=== PATIENT | female | born 1935 | race African-American/Black ===

== ENCOUNTER 2020-01-30 11:33 | Emergency (ER) | payer SELFPAY ==
[~2020-01-30] VITALS: Ht 167.6 cm; Wt 50.0 kg
[2020-01-30] MEDS ORDERED: SODIUM CHLORIDE 0.9% 1,000 ML IV ONE (12:35)
[2020-01-30 13:12] LABS: CLARITY URINE CLOUDY (CLEAR); COLOR URINE YELLOW (YELLOW); KETONES URINE NEGATIVE (NEGATIVE); LEUKOCYTE ESTERASE URINE NEGATIVE (NEGATIVE); NITRITE URINE NEGATIVE (NEGATIVE); OCCULT BLOOD URINE NEGATIVE (NEGATIVE); PH URINE 7.5 (4.5-8.0); PROTEIN URINE NEGATIVE (NEGATIVE); UROBILINOGEN URINE 0.2 E.U./dL (0.2-1.0)
[2020-01-30 13:27] LABS: BASOPHILS % 1.5 % (0.0-2.0); EOSINOPHILS % 0.2 % (0.0-5.0); HEMATOCRIT. 41.7 % (36.0-48.0); HEMOGLOBIN. 13.4 g/dL (12.0-16.0); LYMPHOCYTES % 9.4 % (20.0-50.0); MEAN CORPUSCULAR HEMOGLOBIN 24.5 pg (28.0-32.0); MEAN CORPUSCULAR VOLUME 76.6 fL (81.0-99.0); MONOCYTES % 5.3 % (2.0-8.0); NEUTROPHILS % 83.6 % (40.0-76.0); PLATELET 201 x1000/uL (130-400); RED BLOOD CELL COUNT 5.45 mill/uL (4.2-5.4); RED CELL DISTRIBUTION WIDTH 19.1 % (11.6-14.6)
[2020-01-30 13:34] LABS: PROTHROMBIN TIME 10.8 sec (9.6-11.0)
[2020-01-30 13:49] LABS: CHLORIDE 103 mEq/L (98-107)
[2020-01-30 16:20] VITALS: BP 154/97
[2020-01-30] MEDS ORDERED: CLONIDINE 0.2MG TABLET PO ONE (17:45)
== END 2020-01-30 17:53 | disposition short-term general hospital (02) ==
LOC: ER 11:33 → CANBEDREQ 19:22
DX: R42 Dizziness and giddiness (principal); I11.9 Hypertensive heart disease without heart failure; F03.90 Unspecified dementia, unspecified severity, without behavioral disturbance, psychotic disturbance, mood disturbance, and anxiety
CPT/HCPCS: 36415; 70450; 71045; 80053; 81003; 83880; 84484; 85025; 85610; 93005; 96360; 99285; J7030